=== PATIENT | female | born 1955 | race Two or more races ===

== ENCOUNTER → 2018-12-18 | Outpatient (CLI) | payer MEDICARE | END | disposition home or self-care (01) | LOC: RAD 09:56 | PROVIDERS: ATTEND Family Medicine | DX: R05 Cough (principal) | CPT/HCPCS: 71046 ==

== ENCOUNTER 2019-01-18 00:36 | Emergency (ER) | payer MEDICARE ==
[~2019-01-18] VITALS: Ht 162.6 cm; Wt 100.0 kg
--- NOTE | 2019-01-18 01:00 | NUR ---
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 STATES THAT FOR THE LAST SEVERAL DAYS SHE HAS NOTICED A CHANGE IN HER URINE BEING MORE YELLOW AND CLOUDY. COLLECTED AND SENT HERE, CLEAR YELLOW. MINIMAL TENDERNESS PALP LLQ AT THIS TIME. PT TAKES B/P MEDICATION AND THYROID MEDICATION, IS PT OF DR MCMAHON.
[2019-01-18] MEDS ORDERED: THYR120T PO (01:03)
[2019-01-18] MEDS ORDERED: LEVO150T PO (01:03)
[2019-01-18] MEDS ORDERED: LOSA50TA14 PO (01:03)
[2019-01-18] MEDS ORDERED: HYDROcodone/APAP 5/325 TABLET PO ONE (01:30)
[2019-01-18] MEDS ORDERED: HYDROcodone/APAP 5/325 TABLET ONE (01:46)
--- NOTE | 2019-01-18 01:48 | NUR ---
PT MEDICATED PER EMAR. PT TOLERATED WELL.
--- NOTE | 2019-01-18 01:59 | NUR ---
PT AMB TO BR AND BACK TO ROOM WITH STEADY GAIT.
[2019-01-18 02:08] VITALS: BP 128/61
[2019-01-18 02:23] LABS: MICROSCOPIC AUTO
[2019-01-18 02:24] LABS: CULTURE INDICATED? YES
--- NOTE | 2019-01-18 02:38 | NUR ---
PT TO CT NOW.
[2019-01-18 03:01] LABS: BASOPHILS # (AUTO) 0.06 x10^3/uL (0-0.1); BASOPHILS % (AUTO) 1 % (0-1); EOSINOPHILS # (AUTO) 0.15 x10^3/uL (0-0.4); EOSINOPHILS % (AUTO) 2 % (1-7); LYMPHOCYTES # (AUTO) 2.07 x10^3/uL (1-3.4); LYMPHOCYTES % (AUTO) 28 % (22-44); MD NO; MEAN CORPUSCULAR HEMOGLOBIN 29.4 pg (27.0-34.8); MEAN CORPUSCULAR VOLUME 89.3 fL (80-100); MEAN PLATELET VOLUME 7.3 fL (7.4-10.4); MONOCYTES # (AUTO) 0.73 x10^3/uL (0.2-0.8); MONOCYTES % (AUTO) 10 % (2-9); NEUTROPHILS # (AUTO) 4.39 x10^3/uL (1.8-6.8); NEUTROPHILS % (AUTO) 59 % (42-75); PLATELET COUNT 288 x10^3/uL (130-400); RED BLOOD COUNT 4.65 x10^6/uL (3.82-5.3); RED CELL DISTRIBUTION WIDTH 14.7 % (9.6-15.2)
[2019-01-18 03:13] LABS: ALBUMIN 3.6 g/dL (3.4-5.0); ANION GAP 5 mmol/L (5-15); CHLORIDE 111 mmol/L (98-107); CREATININE 0.62 mg/dL (0.55-1.02)
--- NOTE | 2019-01-18 03:47 | NUR ---
Patient given discharge instructions and they have confirmed that they understand the instructions. Patient ambulatory with steady gait.
== END 2019-01-18 03:48 | disposition home or self-care (01) ==
LOC: ED 02:02
DX: K57.90 Diverticulosis of intestine, part unspecified, without perforation or abscess without bleeding (principal); N83.292 Other ovarian cyst, left side; K80.20 Calculus of gallbladder without cholecystitis without obstruction; K76.0 Fatty (change of) liver, not elsewhere classified; N20.0 Calculus of kidney; I10 Essential (primary) hypertension
CPT/HCPCS: 36415; 74176; 80048; 81001; 82040; 85025; 87077; 87086; 99284

== ENCOUNTER 2019-05-10 10:55 | Outpatient (CLI) | payer MEDICARE ==
[~2019-05-10 10:55] MED LIST: LEVO150T PO; LOSA50TA14 PO; THYR120T PO
[2019-05-10] MEDS ORDERED: OMNIPAQUE 350 MG/ML, 150 ML BOTTLE ONE (15:16)
== END 2019-05-10 23:59 | disposition home or self-care (01) ==
LOC: CFH 10:55
PROVIDERS: ATTEND Urology
DX: K80.20 Calculus of gallbladder without cholecystitis without obstruction (principal); K76.0 Fatty (change of) liver, not elsewhere classified; R16.0 Hepatomegaly, not elsewhere classified; R82.994 Hypercalciuria
CPT/HCPCS: 74178; Q9967